=== PATIENT | female | born 2000 ===

== ENCOUNTER 2023-07-29 20:00 | Emergency (ER) | payer BC, SELFPAY ==
[2023-07-29 20:07] VITALS: BP 149/77
[2023-07-29 20:58] LABS: % Basophils 0.4 % (0-2); % Eosinophils 2.8 % (0-6); % Immature Granulocytes 0.2 % (0-0.5); % Lymphocytes 26.9 % (20.5-51.1); % Neutrophils 62.7 % (42.2-75.2); Absolute Eosinophils 0.3 10^3/uL (0-0.7); Absolute Lymphocytes 2.5 10^3/uL (1.2-3.4); Absolute Monocytes 0.6 10^3/uL (0.1-0.6); Absolute Neutrophils 5.7 10^3/uL (1.4-6.5); Hematocrit 38.1 % (37.0-47.0); Hemoglobin 12.9 g/dL (12.0-16.0); Mean Corp Hgb Conc. 33.9 g/dL (33.0-37.0); Mean Corpuscular Hgb 26.6 pg (27.0-31.0); Mean Corpuscular Volume 78.6 fL (81.0-99.0); Mean Platelet Volume 8.6 fL (7.4-10.4); Nucleated Red Blood Cells % 0 %; Platelet Count 426 10^3/uL (130-400); Red Blood Cell Count 4.85 10^6/uL (4.20-5.40); Red Cell Dist. Width 14.3 % (11.5-14.5); White Blood Cell Count 9.2 10^3/uL (4.8-10.8)
--- NOTE | 2023-07-29 21:01 | ED.GENMED ---
History of Present Illness
General
Chief Complaint: Crisis Evaluation
Time Seen by Provider: 07/29/23 20:26
Travel History
Have you had any contact with someone who has COVID-19?: No
Do you have any symptoms of coronavirus? Fever > 100 degrees, chills, cough, shortness of breath, sore throat, loss of taste or smell, muscle aches, or headache?: No
History of Present Illness
History of Present Illness:
22-year-old female presents to the emergency department for medical clearance for psychiatric admission from the emergency department. She was requesting to sign herself in for inpatient treatment due to increased anxiety and homicidal thoughts.
She has an underlying history of subaortic stenosis and complete atrioventricular defect, has had multiple open heart surgeries performed at [facility]. She is not on any cardiac medications currently. Denies any SI or
illicit drug use
Review of Systems
Review of Systems
Allergies reviewed?: Yes
All Other Systems: ROS reviewed and negative except as documented in HPI and ROS
Phy Exam
Physical Exam
Physical Exam:
GEN: Well appearing, NAD, WDWN
HEENT: Oral mucosa moist, no scleral icterus
Cardiac: Regular rate and rhythm, high-pitched systolic murmur
Lung: No respiratory distress, no tachypnea
MSK: No gross deformity or injuries
Skin: Good color, no pallor or jaundice, no rashes
Neuro: AO x3, moves all extremities freely
Psych: Calm, cooperative
Course
Orders/Labs/Results
Orders:
Orders
07/29/23 20:15
Electrocardiogram (*1) Urgent
Reason for Study: Other
Other Reason for Exam: medical clearance history of heart surg.
Test Result ONCE
07/29/23 20:16
EKG- Treatment ONCE
07/29/23 20:52
Alcohol Urgent
Basic Metabolic Panel Urgent
Complete Blood Count/With Diff Urgent
HCG, Serum Qualitative Screen Urgent
Abnormal Lab Results
07/29/23
20:52
MCV 78.6 L fL
(81.0-99.0)
MCH 26.6 L pg
(27.0-31.0)
Plt Count 426 H 10^3/uL
(130-400)
Calcium 10.3 H mg/dl
(8.4-10.2)
07/29/23 20:52
07/29/23 20:52
Vital Signs
Initial and Last Documented VS:
Initial Vital Signs
Temp Pulse Resp BP Pulse Ox
98.8 F 98 18 149/77 98
07/29/23 20:07 07/29/23 20:07 07/29/23 20:07 07/29/23 20:07 07/29/23 20:07
Last Documented Vital Signs
Temp Pulse Resp BP Pulse Ox
98.8 F 89 18 136/71 98
07/29/23 20:07 07/29/23 21:19 07/29/23 20:07 07/29/23 21:19 07/29/23 21:19
MDM/Problems Addressed
MDM/Problems Addressed:
Patient is medically cleared for crisis and psychiatric placement, will discharge into [facility] for further care
*Critical Care Note
Total Time (30-74mins, 75-104mins- exclusive of procedures): Not Applicable
ED Attending Note
-
Portions of this chart may have been created with voice recognition software.� Occasional wrong word or��sound alike� substitutions may have occurred due to the inherent limitations of voice recognition software.
Discharge Plan
Departure
Patient Disposition: [facility]
Date of Disposition: 07/29/23
Time of Disposition: 21:33
Discharge Problem:
Homicidal ideation, Anxiety
Prescriptions:
No Action
buspirone 5 mg Tablet
5 mg PO TIDPRN PRN (Reason: Anxiety)
Patient Comments:
has not taken in a long time but still has prescription - ativan used in place of this
sertraline 100 mg Tablet
100 mg PO HS
Rx Instructions:
with 25mg = 125mg total
levonorgestrel-ethinyl estrad [Altavera (28)] 0.15-0.03 mg Tablet
1 tab PO DAILY
sertraline 25 mg Tablet
25 mg PO HS
Rx Instructions:
with 100mg = 125mg total
lorazepam 0.5 mg Tablet
0.5 - 1 mg PO BIDPRN PRN (Reason: panic attacks)
Activity Restrictions/Additional Instructions:
Lisa is medically cleared for psychiatric placement
Interventions
Interventions:
*Risk Screen - Suicide Last Done: 07/29/23 21:19
*General Assessment Last Done: 07/29/23 20:07
*Neglect/Abuse Screening Last Done: 07/29/23 20:07
ED- Fall Risk Assessment Last Done: 07/29/23 21:19
*ED COVID-19 Vaccine History Last Done: 07/29/23 20:07
*Nursing Disposition Last Done: 07/29/23 21:46
ED-Psychological Assessment Last Done: 07/29/23 21:19
Discharge Date and Time
Discharge Date/Time: 07/29/23 21:46
Print Language: BOLIVIAN
[2023-07-29 21:11] LABS: HCG, Serum Qualitative Screen Negative
[2023-07-29 21:19] VITALS: BP 136/71; BMI 37.7
[2023-07-29 21:19] LABS: Blood Urea Nitrogen 14 mg/dl (7-17); Calcium 10.3 mg/dl (8.4-10.2); Carbon Dioxide 24 mmol/L (22-30); Chloride 103 mmol/L (98-107); Glucose 91 mg/dl (70-99); Potassium 4.5 mmol/L (3.5-5.1); Sodium 139 mmol/L (135-145); eGFR > 60.00
[2023-07-29 21:20] LABS: Alcohol None Detected
--- NOTE | 2023-07-29 21:24 | EDRN ---
Pt says she had exposure therapy this morning for OCD which led to a severe panic attack. Pt was convinced she was going to kill her mother. Pt did not want to ignore this feeling so she called [phone] and says they were able to calm her and she took
ativan. Pt was advised to come to the ED/crisis for evaluation. Pt here with her mother who is present at bedside. Pt says she feels calmer now but is still having intrusive thoughts about hurting her mother. Pt denies SI/AH/VH. Per pt, crisis
is working on bed placement for her inpatient and she is in the ED for medical clearance due to her medical history.
== END 2023-07-29 21:46 ==
LOC: EMR 20:00
PROVIDERS: EMERGENCY PHYSICIAN Emergency Medicine
DX: R45.850 Homicidal ideations (principal); F41.9 Anxiety disorder, unspecified; Z02.79 Encounter for issue of other medical certificate; Q24.4 Congenital subaortic stenosis; Z88.1 Allergy status to other antibiotic agents
CPT/HCPCS: 99284; 80048; 82077; 84703; 85025; 93005